=== PATIENT | female | born 1955 | race African-American/Black ===

== ENCOUNTER 2017-02-01 12:06 | Emergency (ER) | payer MEDICAID ==
[2017-02-01 12:14] VITALS: BP 141/80
--- NOTE | 2017-02-01 14:34 | ER Document Report ---
ED General - General Chief Complaint: Facial Swelling Stated Complaint: RIGHT SIDE FACIAL SWELLING,NUMBNESS Time Seen by Provider: 02/01/17 14:30 Mode of Arrival: Ambulatory Information source: Patient Notes: 62-year-old female with a history of hypertension and diabetes rolled over in bed at 3 this morning after she been asleep for 2 hours and had an episode of "spinning" that lasted less than 1 minute, she went to the bathroom and vomited. She went back to bed and woke up at 9:30 this morning. About 10:30 this morning she looked in the mirror for no reason that she can recall and noticed that her lower right face was swollen. There was no pain but it started to be numb which has radiated up to the eye region on the same side of face. There is no itching or pain. No history of Coyle's palsy. No weakness or parathesia's to arms. Hx Chronic neuropathy since 1959's when surgery done to cut tendons due to "drawing up of legs" uses cane. No headache. No chest pain or shortness of breath. No abdominal pain. No fever or chills. No tooth pain. Hx Vertigo in past that lasted 6 months without medication. Does not take anticoagulants PCP: Dr Morales. No hx stroke or TIA, No hx migraines. TRAVEL OUTSIDE OF THE [place] IN LAST 30 DAYS: No - Related Data Allergies/Adverse Reactions: No Known Allergies Allergy (Verified 02/01/17 12:12) Past Medical History - General Information source: Patient - Social History Smoking Status: Never Smoker Chew tobacco use (# tins/day): No Frequency of alcohol use: None Drug Abuse: None Family History: Reviewed & Not Pertinent Patient has suicidal ideation: No Patient has homicidal ideation: No - Past Medical History Cardiac Medical History: Reports: Hx Heart Attack, Hx Hypercholesterolemia, Hx Hypertension Endocrine Medical History: Reports: Hx Diabetes Mellitus Type 2 Renal/ Medical History: Denies: Hx Peritoneal Dialysis Past Surgical History: Reports: Hx Cardiac Surgery - stent, Hx Orthopedic Surgery - back, bilateral leg - Immunizations Hx Diphtheria, Pertussis, Tetanus Vaccination: No Review of Systems - Review of Systems Constitutional: No symptoms reported EENT: See HPI Cardiovascular: No symptoms reported Respiratory: No symptoms reported Gastrointestinal: No symptoms reported Genitourinary: No symptoms reported Female Genitourinary: No symptoms reported Musculoskeletal: No symptoms reported Skin: No symptoms reported Hematologic/Lymphatic: No symptoms reported Neurological/Psychological: See HPI Physical Exam - Vital signs Vitals: Temp Pulse Resp BP Pulse Ox 98.4 F 78 16 141/80 H 96 02/01/17 12:13 02/01/17 12:13 02/01/17 12:13 02/01/17 12:13 02/01/17 12:13 Interpretation: Normal - General General appearance: Appears well, Alert - HEENT Head: Normocephalic, Atraumatic Eyes: Normal Conjunctiva: Normal Extraocular movements intact: Yes Pupils: PERRL Tympanic membrane: Normal Mouth/Lips: Other - mild swelling right upper lateral lip Pharynx: Normal Neck: Supple Notes: right medial cheek from mandible to nose swollen per pt. intraoral no absces or swelling, no parotid swelling. no tenderness - Respiratory Respiratory status: No respiratory distress Chest status: Nontender Breath sounds: Normal Chest palpation: Normal - Cardiovascular Rhythm: Regular Heart sounds: Normal auscultation Murmur: No - Abdominal Inspection: Normal Distension: No distension Bowel sounds: Normal Tenderness: Nontender Organomegaly: No organomegaly - Back Back: Normal, Nontender - Extremities General upper extremity: Normal inspection, Nontender, Normal color, Normal ROM , Normal temperature General lower extremity: Normal inspection, Nontender, Normal color, Normal ROM , Normal temperature, Normal weight bearing. No: Zuleyka's sign - Neurological Neuro grossly intact: Yes Cognition: Normal Orientation: AAOx4 Amirah Coma Scale Eye Opening: Spontaneous [place]ir[place] Coma Scale Verbal: Oriented Amirah Coma Scale Motor: Obeys Commands Amirah Coma Scale Total: 15 Speech: Normal Motor strength normal: LUE, RUE, LLE, RLE Sensory: Normal - Psychological Associated symptoms: Normal affect, Normal mood - Skin Skin Temperature: Warm Skin Moisture: Dry Skin Color: Normal Course - Re-evaluation Re-evalutation: 02/01/17 14:[address] stapleton for work up, get the CT and labs 02/01/17 16:14 pt states swelling in right cheek is gone, numbness is going away but still around lateral upper nad lower lip and feels burning sensation upper lip., the CT is negative. Labs have not been drawn. Takes lisinopril for 10 years. 02/01/17 17:30 lab never came to draw the blood. charge nurse notified. [place] trying to get the blood again. 02/01/17 17:41 dr stapleton evaluated the pt, we can cancel the labs, tx as allergic reaction. - Vital Signs Vital signs: Temp Pulse Resp BP Pulse Ox 98.4 F 78 16 141/80 H 96 02/01/17 12:13 02/01/17 12:13 02/01/17 12:13 02/01/17 12:13 02/01/17 12:13 Discharge - Discharge Clinical Impression: Facial swelling, Numbness Allergic reaction Qualifiers: Encounter type: initial encounter Qualified Code(s): T78.40XA - Allergy, unspecified, initial encounter Condition: Good Disposition: HOME, SELF-CARE Instructions: Acute Allergic Reaction ([facility]), Numbness or Paresthesia ([facility]) Additional Instructions: Take [id number]-qqindrc Benadryl 50 mg every 4-6 hours. Take irht-kfu-yimohef Pepcid 20 mg twice a day Take the steroid as prescribed Hold the lisinopril tomorrow and see Dr. Morales on Friday he may want to change to a different medication I have written you prescription for the HCTZ 12.5 portion of your combination antihypertensive so you can take it tomorrow Return to the emergency room this weekend if the symptoms worsen. Please complete the patient satisfaction survey if you get one, and return it.. If you do not receive a survey, then you can go to the [facility] website, [email or web address] and place your comments about your very good care. Thank you very much. It was a pleasure being your medical provider today. Prescriptions: Hydrochlorothiazide 12.5 mg PO DAILY #30 capsule Prednisone [Deltasone 10 mg Tablet] 10 mg PO ASDIR PRN #15 tablet PRN Reason: Referrals: KENNETH MORALES MD [Primary Care Provider] - 02/03/17
--- NOTE | 2017-02-01 15:24 | RADIOLOGY REPORT (SQ) ---
EXAM DESCRIPTION: CT HEAD WITHOUT COMPLETED DATE/TIME: 02/01/2017 3:15 pm REASON FOR STUDY: facial swelling and numbness COMPARISON: None. TECHNIQUE: Axial images acquired through the brain without intravenous contrast. Images reviewed wi th bone, brain and subdural windows. Images stored on PACS. All CT scanners at this facility use dose modulation, iterative reconstruction, and/or weight based d osing when appropriate to reduce radiation dose to as low as reasonably achievable (ALARA). [facility]: Dose Right [facility]: CareDose [facility]: Dose Right [facility]: Teradose 4D [facility]: Smart [employer] RADIATION DOSE: Up-to-date CT equipment and radiation dose reduction techniques were employed. CTDIv ol: 64.6 mGy. DLP: 1163 mGy-cm. mGy. LIMITATIONS: None. FINDINGS: VENTRICLES: Normal size and contour. CEREBRUM: No masses. No hemorrhage. No midline shift. No evidence for acute infarction. Normal gra y/white matter differentiation. No areas of low density in the white matter. CEREBELLUM: No masses. No hemorrhage. No alteration of density. No evidence for acute infarction. EXTRAAXIAL SPACES: No fluid collections. No masses. ORBITS AND GLOBE: No intra- or extraconal masses. Normal contour of globe without masses. CALVARIUM: No fracture. PARANASAL SINUSES: No fluid or mucosal thickening. SOFT TISSUES: No mass or hematoma. OTHER: No other significant finding. IMPRESSION: NORMAL BRAIN CT WITHOUT CONTRAST. EVIDENCE OF ACUTE STROKE: NO. COMMENT: Quality ID # [id number]: Final reports with documentation of one or more dose reduction techniques (e.g., Automated exposure control, adjustment of the mA and/or kV according to patient size, use of iterative reconstruction technique) TECHNICAL DOCUMENTATION: JOB ID: [id number] [employer]- All Rights Reserved
[2017-02-01] MEDS ORDERED: DIPHENHYDRAMINE HCL 50 MG CAPSULE PO ONE (16:22)
[2017-02-01] MEDS ORDERED: FAMOTIDINE 20 MG TABLET PO ONE (17:40)
[2017-02-01] MEDS ORDERED: PREDNISONE 20 MG TABLET PO ONE (17:40)
== END 2017-02-01 17:40 | disposition home or self-care (01) ==
LOC: ER 12:06
DX: T78.40XA Allergy, unspecified, initial encounter (principal); R22.0 Localized swelling, mass and lump, head; R20.0 Anesthesia of skin; I10 Essential (primary) hypertension; E11.9 Type 2 diabetes mellitus without complications; R42 Dizziness and giddiness
CPT/HCPCS: 99283; 70450; J3490 ×2; J7512

== ENCOUNTER → 2018-08-19 | Outpatient (CLI) | payer MEDICAID ==
--- NOTE | 2018-08-20 01:00 | XCELERA REPORT ---
[address] [address] Lower Extremity Venous Evaluation Procedure: A bilateral duplex scan of the lower extremity veins was performed. The evaluation included responses to compression and other maneuvers with patient in the supine and standing positions to assess venous insufficiency. Right Sided Venous Evaluation Deep venous system evaluatiion shows patent veins with no obstruction or significant reflux identified. Sapheno Femoral junction: no reflux. Femoral vein reflux: no reflux. Greater Saphenous vein, Proximal thigh: reflux: no reflux. Greater Saphenous vein, Distal thigh: reflux: no reflux. Greater Saphenous vein, Proximal below knee: reflux: no reflux. No significant Perforators identified. Left Sided Venous Evaluation Deep venous system evaluatiion shows patent veins with no obstruction or significant reflux identified. Sapheno Femoral junction: no reflux. Femoral vein reflux: no reflux. Greater Saphenous vein, Proximal thigh: reflux: no reflux. Greater Saphenous vein, Distal thigh: reflux: no reflux. Greater Saphenous vein, Proximal below knee: reflux: no reflux. No significant Perforators identified. Interpretation Summary No duplex evidence of DVT or obstruction in the bilateral lower extremities. No deep or superficial venous reflux is identified. Name: REMBERTO LOCKHART Age: 63 yrs Gender: Female : 1955 Patient Status: Outpatient Patient Location: Study Date: 08/19/2018 01:21 PM Reason For Study: RLE SWELLING Ordering Physician: CALLIE RAMOS Performed By: Syd Cuevas : CALLIE RAMOS > Ernesto Leyva
== END ==
LOC: SP 12:29
PROVIDERS: ATTEND Physician Assistant
DX: M79.89 Other specified soft tissue disorders (principal)
CPT/HCPCS: 93970

== ENCOUNTER 2019-02-18 09:50 | Day surgery (SDC) | payer MEDICAID ==
[~2019-02-18 09:50] MED LIST: KETOROLAC TROMETHAMINE 0.45% 4 DROP/0.4 ML DROPERETTE OS PRN; TRYPAN BLUE 0.06 % OPH SOLN 0.5 ML DISP.SYRIN ONE
[2019-02-18] MEDS: CYCLOPENTOLATE 0.2%/PHENYLEPHRINE 1% OPH SOLN 2 ML OS PRN ×3 (11:15→11:35)
[2019-02-18] MEDS: BESIFLOXACIN HCL 0.6% OPH SUSP 5 ML BOTTLE OS PRN ×4 (11:15→12:12)
[2019-02-18] MEDS: TROPICAMIDE 1% OPH SOLN 15 ML OS PRN ×3 (11:15→11:35)
[2019-02-18] MEDS: TETRACAINE HCL 0.5% OPH SOLN 4 ML OS PRN ×3 (11:15→11:53)
[2019-02-18] MEDS ORDERED: MIDAZOLAM 2 MG/2 ML INJ ONE (11:37)
[2019-02-18] MEDS: LIDOCAINE 1%/PHENYLEPHRINE 1.5% 1 ML VIAL ONE ×2 (12:04)
[2019-02-18] MEDS: EPINEPHRINE INJ/PF 1 MG/1 ML AMPULE ONE ×2 (12:04)
[2019-02-18] MEDS: CHONDR SU A NA/HYALUR INTRAOC KIT (SURGICARE) ONE ×2 (12:04)
[2019-02-18] MEDS: DORZOLAMIDE HCL 2%/TIMOLOL MALEAT 0.5% OPH SOLN 10 ML OS PRN ×2 (12:12)
--- NOTE | 2019-02-18 15:53 | Operative Report ---
Operative Report-[facility] Operative Report: DATE OF SURGERY: 02/18/2019 PREOPERATIVE DIAGNOSIS: Cataracts, left eye POSTOPERATIVE DIAGNOSIS: Cataract, left eye OPERATION: Cataract extraction with insertion of an IOL of the left eye. Intraocular Lens Model: [14.5 [id number]] Reason for surgery was difficulty seeing the television SURGEON: Darinel Hitchcock MD ANESTHESIA: Topical PROCEDURE: After obtaining appropriate consent, the patient's left eye was prepped and draped in a sterile fashion as well as the surgeon in the sterile manner and cataract surgery was started. First a paracentesis blade was used to make a side-port incision. Viscoelastic was used to inflate the anterior chamber. Next a 2.4 mm incision was made with a 2.4 mm blade, clear corneal temporarily. A continuous capsulorrhexis was made using a cystotome and Utrata forceps. Following this hydrodissection was carried out to make the lens fully loose and mobile and it was rotated 90 degrees. Following this, a divide and conquer technique was used to phacoemulsify the lens. The remaining cortex was removed with an irrigation/aspiration. Provisc was instilled into the capsular bag to inflate the bag.The intraocular lens was placed. The remaining viscoelastic material was removed with irrigation/aspiration. Following this, the incision was found to be watertight. Besivance and Cosopt was instilled into the eye and a protective shield was placed over the eye. The patient was returned to the postoperative recovery in a stable condition.
== END 2019-02-18 12:50 | disposition home or self-care (01) ==
LOC: SC 09:50
PROVIDERS: ATTEND Internal Medicine
DX: H25.89 Other age-related cataract (principal); H47.292 Other optic atrophy, left eye; E11.9 Type 2 diabetes mellitus without complications; H04.123 Dry eye syndrome of bilateral lacrimal glands; I10 Essential (primary) hypertension; E78.00 Pure hypercholesterolemia, unspecified; Z79.84 Long term (current) use of oral hypoglycemic drugs; Z79.899 Other long term (current) drug therapy; I25.2 Old myocardial infarction
CPT/HCPCS: 66984; 82962; V2632; J2250; J3490 ×3; J0171; J2370; 142

== ENCOUNTER 2019-03-01 15:09 | Emergency (ER) | payer MEDICAID ==
--- NOTE | 2019-03-01 17:50 | ER Document Report ---
ED Medical Screen (RME) - General Chief Complaint: Weakness Stated Complaint: BACK PAIN Time Seen by Provider: 03/01/19 17:33 Primary Care Provider: KENNETH MORALES MD [Primary Care Provider] - Follow up as needed Notes: Patient is a 64-year-old female with a history of diabetes, MA, hypertension who presents to the emergency department with a chief complaint of bilateral leg weakness. Patient reports since Friday she has had decreased mobility in her lower extremities. Patient reports she has been using her cane more frequently over the weekend. Patient reports she normally does have numbness to bilateral feet but has noticed increased numbness from the right knee down to the right foot. Patient reports she normally does have some swelling to the lower extremities as well and she is on a diuretic. Patient reports having some right calf pain over the weekend and increased swelling to the right lower extremity which is different from her normal. 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 Patient reports she did have spinal surgery as a child. Patient reports 30 years ago she started to have to perform self caths to urinate. Patient denies of back pain at this time but does report feeling a weakness in her lower back. She states that it feels like her back is "giving away" TRAVEL OUTSIDE OF THE [place] IN LAST 30 DAYS: No - Related Data Allergies/Adverse Reactions: lisinopril Allergy (Mild, Verified 03/01/19 17:17) Swelling of hands and/or feet Past Medical History - Social History Chew tobacco use (# tins/day): No Frequency of alcohol use: None Drug Abuse: None - Past Medical History Cardiac Medical History: Reports: Hx Heart Attack - 1999, Hx Hypercholesterolemia, Hx Hypertension Pulmonary Medical History: Denies: Hx Asthma Neurological Medical History: Denies: Hx Cerebrovascular Accident, Hx Seizures Endocrine Medical History: Reports: Hx Diabetes Mellitus Type 2 Renal/ Medical History: Denies: Hx Peritoneal Dialysis GI Medical History: Reports: Hx Ulcer. Denies: Hx Hepatitis, Hx Hiatal Hernia Infectious Medical History: Denies: Hx Hepatitis Past Surgical History: Reports: Hx Cardiac Surgery - stent, Hx Orthopedic Surgery - BACK SURGERY (CHILD), BILAT LEG SURGERY (CHILD). Denies: Hx Mastectomy, Hx Open Heart Surgery, Hx Pacemaker - Immunizations Hx Diphtheria, Pertussis, Tetanus Vaccination: No Physical Exam - Vital signs Vitals: Temp Pulse Resp BP Pulse Ox 98.5 F 65 16 149/78 H 96 03/01/19 16:26 03/01/19 16:26 03/01/19 16:26 03/01/19 16:26 03/01/19 16:26 - Back Notes: Deformity noted to lower thoracic spine. No tenderness to spine. Patient reports the deformity is from her childhood. Course - Re-evaluation Re-evalutation: 03/01/19 17:49 I have greeted and performed a rapid initial assessment of this patient. A comprehensive ED assessment and evaluation of the patient, analysis of test results and completion of the medical decision making process will be conducted by additional ED providers. - Vital Signs Vital signs: Temp Pulse Resp BP Pulse Ox 98.5 F 65 16 149/78 H 96 03/01/19 17:17 03/01/19 16:26 03/01/19 17:17 03/01/19 16:26 03/01/19 17:17 Doctor's Discharge - Discharge Referrals: KENNETH MORALES MD [Primary Care Provider] - Follow up as needed
--- NOTE | 2019-03-01 18:22 | RADIOLOGY REPORT (SQ) ---
EXAM DESCRIPTION: CT LUMBAR SPINE WITHOUT COMPLETED DATE/TIME: 03/01/2019 6:04 pm REASON FOR STUDY: lower leg weakness, hx. back surgery COMPARISON: None. TECHNIQUE: Axial images acquired through the lumbar spine without intravenous contrast. Images revi ewed with lung, soft tissue and bone windows. Reconstructed coronal and sagittal MPR images reviewed . All images stored on PACS. All CT scanners at this facility use dose modulation, iterative reconstruction, and/or weight based d osing when appropriate to reduce radiation dose to as low as reasonably achievable (ALARA). [facility]: Dose Right [facility]: CareDose [facility]: Dose Right [facility]: Teradose 4D [facility]: Smart [employer] RADIATION DOSE: mGy. LIMITATIONS: None. FINDINGS: SEGMENTATION: Normal. No transitional anatomy. ALIGNMENT: Acute angulation T12 to L3 greater than 90. Chronic finding. Old partial destruction of L2-L1 and T12. There is spinal stenosis at the level of L2. VERTEBRAL BODIES: No fractures. No dislocation. No acute findings. DISCS: No significant protrusions. Study limited by lack of intrathecal contrast. PEDICLES, TRANSVERSE PROCESSES: No fractures. No dislocation. No acute findings. FACETS, POSTERIOR ELEMENTS: No fractures. No dislocation. No spinal stenosis. HARDWARE: None in the spine. VISUALIZED RIBS: No fractures. SOFT TISSUES: No significant or acute finding in adjacent soft tissues. OTHER: No other significant finding. IMPRESSION: Acute greater than 90 angulation T12-L3 with chronic destruction of L 2, L1 and T12. Q uestion healed tuberculosis. Spinal stenosis at the level of L2 without a critical stenosis. TECHNICAL DOCUMENTATION: JOB ID: [id number] Quality ID # [id number]: Final reports with documentation of one or more dose reduction techniques (e.g., Au tomated exposure control, adjustment of the mA and/or kV according to patient size, use of iterative reconstruction technique) 2010 [employer]- All Rights Reserved Reading location - IP/workstation name: [email or web address]
--- NOTE | 2019-03-01 18:24 | RADIOLOGY REPORT (SQ) ---
EXAM DESCRIPTION: CT THORACIC SPINE WITHOUT COMPLETED DATE/TIME: 03/01/2019 6:04 pm REASON FOR STUDY: lower leg weakness, hx. back surgery COMPARISON: None. TECHNIQUE: Axial images acquired through the thoracic spine without intravenous contrast. Images re viewed with lung, soft tissue and bone windows. Reconstructed coronal and sagittal MPR images review ed. Images stored on PACS. All CT scanners at this facility use dose modulation, iterative reconstruction, and/or weight based d osing when appropriate to reduce radiation dose to as low as reasonably achievable (ALARA). [facility]: Dose Right [facility]: CareDose [facility]: Dose Right [facility]: Teradose 4D [facility]: Smart [employer] RADIATION DOSE: CT Rad equipment meets quality standard of care and radiation dose reduction techniq ues were employed. CTDIvol: 107.7 mGy. DLP: 2814 mGy-cm. mGy. LIMITATIONS: None. FINDINGS: VISUALIZED LUNGS: No acute opacities. No pneumothorax. SOFT TISSUES: No soft tissue swelling. No masses. VERTEBRAL BODIES: No fractures. No dislocation. No acute findings. DISCS: Multilevel mild degenerative disc with osteophytes. ALIGNMENT: Normal. TRANSVERSE PROCESSES, POSTERIOR ELEMENTS: No fractures. No dislocation. No acute findings. HARDWARE: None in the spine. VISUALIZED RIBS: No fractures. OTHER: No other significant finding. IMPRESSION: No significant finding in the thoracic spine. Mild multilevel degenerative disc. TECHNICAL DOCUMENTATION: JOB ID: [id number] Quality ID # [id number]: Final reports with documentation of one or more dose reduction techniques (e.g., Au tomated exposure control, adjustment of the mA and/or kV according to patient size, use of iterative reconstruction technique) 2010 [employer]- All Rights Reserved Reading location - IP/workstation name: [email or web address]
[2019-03-01 20:21] LABS: ABSOLUTE LYMPHOCYTES (AUTO) 1.9 10^3/uL (0.5-4.7); ABSOLUTE MONOCYTES (AUTO) 0.3 10^3/uL (0.1-1.4); ABSOLUTE NEUT (AUTO) 2.4 10^3/uL (1.7-8.2); BASOPHILS % (AUTO) 0.5 % (0-2); EOSINOPHILS % (AUTO) 0.9 % (0-6); HEMATOCRIT 38.7 % (36.0-47.0); HEMOGLOBIN 12.9 g/dL (12.0-15.5); LYMPHOCYTES % (AUTO) 41.8 % (13-45); MEAN CORPUSCULAR HEMOGLOBIN 28.2 pg (27.0-33.4); MEAN CORPUSCULAR HGB CONC 33.3 g/dL (32.0-36.0); MEAN CORPUSCULAR VOLUME 85 fl (80-97); MONOCYTES % (AUTO) 5.7 % (3-13); PLATELET COUNT 297 10^3/uL (150-450); RED BLOOD COUNT 4.57 10^6/uL (3.72-5.28); RED CELL DISTRIBUTION WIDTH 14.5 % (11.5-14.0); SEGMENTED NEUTROPHILS % (AUTO) 51.1 % (42-78); TOTAL CELLS COUNTED % (AUTO) 100 %; WHITE BLOOD COUNT 4.6 10^3/uL (4.0-10.5)
[2019-03-01 20:40] LABS: ALBUMIN 5.1 g/dL (3.5-5.0); ALKALINE PHOSPHATASE 64 U/L (38-126); ANION GAP 16 (5-19); ASPARTATE AMINO TRANSFERASE 29 U/L (14-36); BILIRUBIN,DIRECT 0.2 mg/dL (0.0-0.4); BILIRUBIN,TOTAL 0.5 mg/dL (0.2-1.3); BLOOD UREA NITROGEN 10 mg/dL (7-20); CALCIUM 10.4 mg/dL (8.4-10.2); CARBON DIOXIDE 29 mmol/L (22-30); CHLORIDE 99 mmol/L (98-107); GLUCOSE 82 mg/dL (75-110); POTASSIUM 3.4 mmol/L (3.6-5.0); TOTAL PROTEIN 8.7 g/dL (6.3-8.2)
--- NOTE | 2019-03-01 22:07 | RADIOLOGY REPORT (SQ) ---
EXAM DESCRIPTION: US EXTREMITY VEINS BILATERAL COMPLETED DATE/TME: 03/01/2019 17:46 CLINICAL HISTORY: 64 years, Female, lower extremity edema, worse on right COMPARISON: None. TECHNIQUE: Axial 2-D grayscale images of the lower extremities were acquired. Doppler was utilized. LIMITATIONS: None. FINDINGS: Right lower extremity: Right common femoral, superficial femoral, femoral, popliteal, posterior tibial, greater saphenous, and small saphenous veins demonstrate normal compressibility, phasicity, and augmentation. Left lower extremity: The posterior tibial vein is noncompressible, demonstrating no evidence of phasicity. The remainder of the left lower extremity venous structures demonstrate normal compressibility and phasicity (common femoral, superficial femoral, femoral, and popliteal veins). IMPRESSION: Findings consistent with deep venous thrombosis about the left lower extremity, specifically within the left posterior tibial vein. No evidence of deep venous thrombosis within the right lower extremity. copyright 2010 [employer]- All Rights Reserved
--- NOTE | 2019-03-02 00:09 | ER Document Report ---
ED General - General Chief Complaint: Weakness Stated Complaint: BACK PAIN Time Seen by Provider: 03/01/19 17:33 Primary Care Provider: KENNETH MORALES MD [Primary Care Provider] - 03/04/19 TRAVEL OUTSIDE OF THE [place] IN LAST 30 DAYS: No - HPI Notes: Patient is a 64-year-old female with a history of diabetes, MA, hypertension, chronic back pathology, chronic saddle anesthesia and needing to self cath for the past 30 years who presents complaining of right worse than left leg weakness that has been ongoing for the past several days. Patient states that she has chronic weakness generally. She will have occ swelling to her legs as well and is on a diuretic. Pt had spinal surgery as a child. She otherwise is feeling well and has been able to eat and drink without difficulty. No recent illness. She does not have any back pain. Denies any headache, fever, neck pain, URI, sore throat, chest pain, palpitations, syncope, cough, shortness of breath, wheeze, dyspnea, abdominal pain, nausea/vomiting/diarrhea, urinary retention, dysuria, hematuria, muscle paralysis, or rash. - Related Data Allergies/Adverse Reactions: lisinopril Allergy (Mild, Verified 03/01/19 17:17) Swelling of hands and/or feet Past Medical History - Social History Smoking Status: Never Smoker Chew tobacco use (# tins/day): No Frequency of alcohol use: None Drug Abuse: None Family History: Reviewed & Not Pertinent Patient has suicidal ideation: No Patient has homicidal ideation: No - Past Medical History Cardiac Medical History: Reports: Hx Heart Attack - 1999, Hx Hypercholesterolemia, Hx Hypertension Pulmonary Medical History: Denies: Hx Asthma Neurological Medical History: Denies: Hx Cerebrovascular Accident, Hx Seizures Endocrine Medical History: Reports: Hx Diabetes Mellitus Type 2 Renal/ Medical History: Denies: Hx Peritoneal Dialysis GI Medical History: Reports: Hx Ulcer. Denies: Hx Hepatitis, Hx Hiatal Hernia Infectious Medical History: Denies: Hx Hepatitis Past Surgical History: Reports: Hx Cardiac Surgery - stent, Hx Orthopedic Surgery - BACK SURGERY (CHILD), BILAT LEG SURGERY (CHILD). Denies: Hx Mastectomy, Hx Open Heart Surgery, Hx Pacemaker - Immunizations Hx Diphtheria, Pertussis, Tetanus Vaccination: No Review of Systems - Review of Systems -: Yes All other systems reviewed and negative Physical Exam - Vital signs Vitals: Temp Pulse Resp BP Pulse Ox 98.5 F 65 16 149/78 H 96 03/01/19 16:26 03/01/19 16:26 03/01/19 16:26 03/01/19 16:26 03/01/19 16:26 - Notes Notes: PHYSICAL EXAMINATION: GENERAL: Well-appearing, well-nourished and in no acute distress. A&Ox4. Answers questions appropriately. Eyes: PERRLA, EOMI b/l. No nystagmus. LUNGS: Breath sounds clear to auscultation bilaterally and equal. No wheezes rales or rhonchi. HEART: Regular rate and rhythm ABDOMEN: Soft, nontender, nondistended abdomen. No guarding, no rebound. Normal bowel sounds present. No CVA tenderness bilaterally. No pulsatile mass Musculoskeletal: LE's b/l: FROM to passive/active. Strength 4+/5 bilaterally. No bony tenderness of extremities. Dec sensation to feet b/l, chronic per pt. No bony tenderness. Back: + deformity, chronic to low back. FROM to passive/active. Strength 5+/5. No vertebral point tenderness, stepoffs, or deformities. No other bony tenderness, erythema, swelling, or ecchymosis. SLR negative b/l. No SI jt tenderness. No foot drop Extremities: 0-trace pitting edema b/l LE's. Peripheral pulses 2+. Capillary refill less than 2 seconds. NEUROLOGICAL: Normal speech. Normal sensory, motor exams otherwise. Reflexes 1+ b/l. Cranial nerves grossly intact. NIH 0. GCS 15. PSYCH: Normal mood, normal affect. SKIN: Warm, Dry, normal turgor, no rashes or lesions noted. Course - Re-evaluation Re-evalutation: 03/02/19 00:11 Patient is an afebrile, well-hydrated, 64-year-old female who presents to the ED with DVT Lt posterior tibial vein (unprovoked) and bilateral leg weakness. Vitals are acceptable. PE is otherwise unremarkable. See imaging. She has no significant tachycardia, tachypnea, or hypoxia. She is nontoxic-appearing and is tolerating p.o. without difficulties. There are no signs of infection. No other red flag symptoms noted. No other labs or imaging warranted at this time based on H&P. Low suspicion for any meningitis, fracture, expanding/ruptured AAA, cauda equina syndrome, epidural mass lesion/abscess, herniated disc causing severe spinal stenosis, or other systemic infection at this time. Patient is aware that this condition can change from initial presentation and that she needs monitor symptoms closely for any acute changes. I will send her home with a prescription for eliquis. Conservative measures otherwise for symptoms. Recheck with your PCM in 3-5 days. Pt does seem reliable and verbalized agreement with taking meds and contacting her PCM. Consider consult with orthopedic/physical therapy, EMG testing. Return to the ED with any worsening/concerning symptoms otherwise as reviewed discharge. Patient is in agreement. Reviewed with Dr. Mcclain who is in agreement with dispo/plan. - Vital Signs Vital signs: Temp Pulse Resp BP Pulse Ox 98.5 F 65 16 149/78 H 96 03/01/19 17:17 03/01/19 16:26 03/01/19 17:17 03/01/19 16:26 03/01/19 17:17 - Laboratory Result Diagrams: 03/01/19 20:00 03/01/19 20:00 Laboratory results interpreted by me: 03/01/19 03/01/19 20:00 20:00 RDW 14.5 H Potassium 3.4 L Calcium 10.4 H Total Protein 8.7 H Albumin 5.1 H Discharge - Discharge Clinical Impression: Bilateral leg weakness Left leg DVT Qualifiers: Affected thrombotic vein of extremity: tibial Chronicity: acute Qualified Code(s): I82.442 - Acute embolism and thrombosis of left tibial vein Condition: Stable Disposition: HOME, SELF-CARE Instructions: DVT Outpatient Treatment ([facility]) Additional Instructions: Rest, Ice Tylenol/ibuprofen as needed Light stretches daily Strength exercises as able Moist heat and massage may help F/u with your PCP in 2-3 days for a recheck--Call your doctor tomorrow Consider consult(s) with Orthopedics/physical therapy for ongoing/worsening symptoms. Consider EMG testing if warranted Return to the ED with any worsening symptoms and/or development of fever, headache, chest pain, palpitations, syncope, shortness of breath, trouble breathing, abdominal pain, n/v/d, blood in stool/urine, loss of control of bowel/bladder, urinary retention, muscle weakness/paralysis, saddle anesthesia, numbness/tingling, or other worsening symptoms that are concerning to you. Prescriptions: Apixaban [Eliquis] 5 - 10 mg PO ASDIR PRN #40 tab.ds.pk PRN Reason: Forms: Elevated Blood Pressure Referrals: KENNETH MORALES MD [Primary Care Provider] - 03/04/19
[2019-03-02] MEDS ORDERED: APIXABAN 5 MG TABLET PO ONE (00:19)
[2019-03-02 00:30] VITALS: BP 151/78
== END 2019-03-02 00:51 | disposition home or self-care (01) ==
LOC: ER 15:09
DX: R53.1 Weakness (principal); I82.442 Acute embolism and thrombosis of left tibial vein; I10 Essential (primary) hypertension; E11.9 Type 2 diabetes mellitus without complications; R60.0 Localized edema; Z79.899 Other long term (current) drug therapy; M43.9 Deforming dorsopathy, unspecified; Z88.8 Allergy status to other drugs, medicaments and biological substances
CPT/HCPCS: 36415; 72128; 72131; 80053; 85025; 93970; 99284

== ENCOUNTER → 2019-03-09 | Outpatient (CLI) | payer MEDICAID ==
--- NOTE | 2019-03-12 09:54 | RADIOLOGY REPORT (SQ) ---
EXAM DESCRIPTION: MRI LUMBAR SPINE WITHOUT COMPLETED DATE/TIME: 03/09/2019 4:02 pm REASON FOR STUDY: M62.81 MUSCLE WEAKNESS (GENERALIZED) M62.81 MUSCLE WEAKNESS (GENERALIZED) COMPARISON: CT of the lumbar spine without contrast from 03/01/2019. TECHNIQUE: Sagittal and Axial imaging includes T1, T2, STIR and gradient echo sequences. Coronal T2/ HASTE imaging. LIMITATIONS: None. FINDINGS: VISUALIZED UPPER ABDOMEN: Limited evaluation. SEGMENTATION: There are 5 lumbar-type vertebral bodies. There is no transitional anatomy at the lumb osacral junction. ALIGNMENT: Described on the correlative CT from 03/01/2019. There is kyphotic angulation of the thor acolumbar spine with an approximate angle of 70 and posterior displacement of the T12, L1 and L2 elijah tebral bodies relative to the T11 and L3 vertebral bodies. The high T1/T2 signal along the endplates at the involve vertebral bodies is nonspecific and could represent Modic type 2 endplate changes. T he increased signal on the STIR sequence at the posterior aspect of the L2 vertebral body could repre sent edema. VERTEBRAE: There are chronic deformities of the L1 and L2 vertebral bodies. BONE MARROW: As detailed above. DISC SIGNAL: The T12-L1, and L1-L2 and L2-L3 intervertebral disc spaces are narrowed and desiccated. POSTERIOR ELEMENTS: There are laminectomy defects from T12 to L3. HARDWARE: None in the spine. CORD AND CONUS: The spinal canal at the level of the acute kyphotic angulation is effaced and there i s probable chronic atrophy of the cord/ conus medullaris. SOFT TISSUES: No abnormality. L1-L2: Evaluation is limited due to the degree of kyphotic angulation of the lumbar spine at the L1-L 2 level. The left neuroforamen is effaced and as stated above the spinal canal is also effaced with either severe compression or chronic chronic atrophy of the cord/conus medullaris at the L1-L2 level. L2-L3: Despite the degree of kyphotic angulation there is no spinal or foraminal stenosis at the L2-L 3 level. L3-L4: Degeneration of the facet joints without spinal or foraminal stenosis. L4-L5: Degeneration of the facet joints without spinal or foraminal stenosis L5-S1: The L5-S1 facet joints are hypertrophied and there is severe bilateral foraminal stenosis. LOWER THORACIC: At T10-T11 there is a broad based disc bulge and hypertrophy of the ligamentum flavum . SACRUM: The sacrum is intact. OTHER: No other findings. IMPRESSION: Kyphotic angulation of the thoracolumbar spine within approximate angle of 70 and poste rior displacement of the T12, L1 and L2 vertebral bodies relative to the T11 and L3 vertebral bodies. There are posterior laminectomy defects from T12 to L3 ; despite the posterior decompression, the s vince canal at the L1-L2 level is effaced with either severe compression or chronic atrophy of the co rd/conus medullaris at this level. In addition at T10-T11 there is broad-based disc bulge and hypert rophy of the ligamentum flavum that result in encroachment upon the ventral and dorsal aspects of the cord, and on the left at L1-L2 and bilaterally at L5-S1 there is severe foraminal stenosis. TECHNICAL DOCUMENTATION: JOB ID: [id number] [employer]- All Rights Reserved Reading location - IP/workstation name: [email or web address]
== END ==
LOC: RAD 14:24
PROVIDERS: ATTEND Physician Assistant
DX: M51.85 Other intervertebral disc disorders, thoracolumbar region (principal)
CPT/HCPCS: 72148

== ENCOUNTER 2019-03-23 07:10 | Day surgery (SDC) | payer MEDICAID ==
[~2019-03-23 07:10] MED LIST changes: +CHONDR SU A NA/HYALUR INTRAOC KIT (SURGICARE) ONE; +EPINEPHRINE INJ/PF 1 MG/1 ML AMPULE ONE; +KETOROLAC TROMETHAMINE 0.45% 4 DROP/0.4 ML DROPERETTE OD PRN; -KETOROLAC TROMETHAMINE 0.45% 4 DROP/0.4 ML DROPERETTE OS PRN; +LIDOCAINE 1%/PHENYLEPHRINE 1.5% 1 ML VIAL ONE; -TRYPAN BLUE 0.06 % OPH SOLN 0.5 ML DISP.SYRIN ONE
[2019-03-23] MEDS ORDERED: EPINEPHRINE INJ/PF 1 MG/1 ML AMPULE ONE (07:24)
[2019-03-23] MEDS ORDERED: LIDOCAINE 1%/PHENYLEPHRINE 1.5% 1 ML VIAL ONE (07:24)
[2019-03-23] MEDS ORDERED: CHONDR SU A NA/HYALUR INTRAOC KIT (SURGICARE) ONE (07:25)
[2019-03-23] MEDS: TETRACAINE HCL 0.5% OPH SOLN 4 ML OD PRN ×3 (07:52→08:11)
[2019-03-23] MEDS: CYCLOPENTOLATE 0.2%/PHENYLEPHRINE 1% OPH SOLN 2 ML OD PRN ×3 (07:52→08:09)
[2019-03-23] MEDS: TROPICAMIDE 1% OPH SOLN 15 ML OD PRN ×3 (07:53→08:09)
[2019-03-23] MEDS: BESIFLOXACIN HCL 0.6% OPH SUSP 5 ML BOTTLE OD PRN ×4 (07:53→08:31)
[2019-03-23] MEDS ORDERED: MIDAZOLAM 2 MG/2 ML INJ ONE (08:11)
[2019-03-23] MEDS: DORZOLAMIDE HCL 2%/TIMOLOL MALEAT 0.5% OPH SOLN 10 ML OD PRN ×2 (08:33)
--- NOTE | 2019-03-23 17:14 | Operative Report ---
Operative Report-[facility] Operative Report: DATE OF SURGERY: 03/23/2019 PREOPERATIVE DIAGNOSIS: Cataract, right eye POSTOPERATIVE DIAGNOSIS: Cataract, right eye OPERATION: Cataract extraction with insertion of an IOL of the right eye. Intraocular Lens Model: [15.0 sn60wf] Patient underwent surgery they have difficulty seeing words on the television SURGEON: Darinel Hitchcock MD ANESTHESIA: Topical PROCEDURE: After obtaining appropriate consent, the patient's right eye was prepped and draped in a sterile fashion as well as the surgeon in the sterile manner and cataract surgery was started. First a paracentesis blade was used to make a side-port incision. Viscoelastic was used to inflate the anterior chamber. Next a 2.4 mm incision was made with a 2.4 mm blade, clear corneal temporarily. A continuous capsulorrhexis was made using a cystotome and Utrata forceps. Following this hydrodissection was carried out to make the connor fully loose and mobile and it was rotated. Following this, a divide and conquer technique was used to phacoemulsify the connor. The remaining cortex was removed with an irrigation/aspiration. Provisc was instilled into the capsular bag to inflate the bag. The intraocular lens was placed. The remaining viscoelastic material was removed with irrigation/aspiration. Following this, the incision was found to be watertight. Besivance and Cosopt was instilled into the eye and a protective shield was placed over the eye. The patient was reurned to the postoperative recovery in a stable condition.
== END 2019-03-23 09:21 | disposition home or self-care (01) ==
LOC: SC 07:10
PROVIDERS: ATTEND Internal Medicine
DX: H25.89 Other age-related cataract (principal); Z96.1 Presence of intraocular lens; Z79.01 Long term (current) use of anticoagulants; E11.9 Type 2 diabetes mellitus without complications; Z79.84 Long term (current) use of oral hypoglycemic drugs; Z88.8 Allergy status to other drugs, medicaments and biological substances; I10 Essential (primary) hypertension
CPT/HCPCS: 66984; 82962; V2632; J2250; J3490 ×3; J0171; J2370